=== PATIENT | male | born 1930 | race Caucasian/White ===

== ENCOUNTER 2016-09-12 07:09 | Emergency (ER) | payer MEDICARE, BC ==
[~2016-09-12] VITALS: Ht 172.7 cm; Wt 72.7 kg
[~2016-09-12 07:09] MED LIST: ASPIRIN E.C. 8181 MG PO; COUMADIN 1MG1 MG/TAB PO; LIPITOR 80MG80 MG PO; NORVASC 5MG5 MG/TAB PO; PLAVIX 75MG TAB75 MG PO; PLETAL50 MG PO; ZESTRIL 20MG TA20 MG PO
[2016-09-12 07:12] VITALS: BP 108/59; TEMP 96.9
[2016-09-12 08:29] VITALS: PULSE 71
== END 2016-09-12 08:31 | disposition home or self-care (01) ==
LOC: COL.ER 07:09
DX: S09.90XA Unspecified injury of head, initial encounter (principal); S01.01XA Laceration without foreign body of scalp, initial encounter; I10 Essential (primary) hypertension; Z79.01 Long term (current) use of anticoagulants; Z87.442 Personal history of urinary calculi; Z95.5 Presence of coronary angioplasty implant and graft; Z98.890 Other specified postprocedural states; W01.10XA Fall on same level from slipping, tripping and stumbling with subsequent striking against unspecified object, initial encounter; Y92.009 Unspecified place in unspecified non-institutional (private) residence as the place of occurrence of the external cause

== ENCOUNTER 2016-09-24 10:45 | Emergency (ER) | payer MEDICARE, BC ==
[2016-09-24 10:51] VITALS: BP 124/69; PULSE 18; TEMP 98.1
== END 2016-09-24 11:01 | disposition home or self-care (01) ==
LOC: COL.ER 10:45
DX: S01.01XD Laceration without foreign body of scalp, subsequent encounter (principal); Z79.01 Long term (current) use of anticoagulants; Z79.02 Long term (current) use of antithrombotics/antiplatelets; X58.XXXD Exposure to other specified factors, subsequent encounter

== ENCOUNTER 2016-11-23 12:36 | Inpatient (IN) | payer MEDICARE, BC ==
[~2016-11-23] VITALS: Ht 172.7 cm; Wt 70.1 kg
[2016-11-23] MEDS ORDERED: COUMADIN 3MG3 MG/TAB PO (12:58)
[2016-11-23] MEDS ORDERED: LOPRESSOR 550 MG/TAB PO (13:02)
[2016-11-23] MEDS ORDERED: ZYLOPRIM 100MG100 MG PO (13:03)
[2016-11-23] MEDS ORDERED: EPA FISH OIL1 SGL PO (13:04)
[2016-11-23 13:52] LABS: BASO # 0.1 (0.0-0.2); BASO % 1.5 % (0.0-2.0); EOS % 0.8 % (0-4.0); GRAN % 62.3 % (42.2-75.2); LYMPH # 0.9 (1.2-3.4); MEAN CELL VOLUME 91 fl (80.0-100.0); MEAN CORPUSCULAR HEMOGLOBIN 32 pg (27.0-31.0); MEAN CORPUSCULAR HGB CONC 36 g/dl (33.0-37.0); MEAN PLATELET VOLUME 9.2 fl (7.4-10.4); MONO # 0.8 (0.1-0.6); MONO % 15.8 % (1.7-9.3); PLATELET COUNT 194 K/mm3 (130-400); RED BLOOD COUNT 3.73 M/mm3 (4.20-5.60); WHITE BLOOD COUNT 4.7 K/mm3 (4.8-10.8)
[2016-11-23 13:53] LABS: HEMATOCRIT 33.8 % (42.0-52.0)
[2016-11-23 14:01] LABS: ADJUSTED CALCIUM 8.3 mg/dL (8.4-10.2); ALANINE AMINOTRANSFERASE 43 U/L (21-72); ALBUMIN 4.1 gm/dL (3.5-5.0); ALKALINE PHOSPHATASE 120 U/L (50-136); ANION GAP 25 mmol/L (7-16); BILIRUBIN,TOTAL 1.5 mg/dL (0.0-1.0); BLOOD UREA NITROGEN 20 mg/dL (9-20); CALCIUM 8.4 mg/dL (8.4-10.2); CHLORIDE 95 mmol/L (98-107); CREATININE, serum 1.52 mg/dL (0.66-1.25); GLUCOSE 59 mg/dL (74-106); POTASSIUM 4.2 mmol/L (3.4-5.0); SODIUM 133 mmol/L (137-145); TOTAL PROTEIN 6.8 gm/dL (6.4-8.2)
[2016-11-23 14:03] LABS: ACETAMINOPHEN < 10 ug/mL (10-30); CARBON DIOXIDE 13 mmol/L (22-30); SALICYLATE < 1.0 mg/dL
[2016-11-23 14:09] LABS: INR 1.8 (0.8-3.0); PROTHROMBIN TIME 20.6 SECONDS (9.7-12.8)
[2016-11-23 14:12] LABS: PARTIAL THROMBOPLASTIN TIME 35.7 SECONDS (26.0-37.0)
[2016-11-23 16:38] VITALS: BP 139/99; PULSE 115
[2016-11-23 16:45] LABS: MAGNESIUM 1.4 mg/dL (1.6-2.3)
[2016-11-23 18:16] VITALS: BP 159/68; PULSE 96; TEMP 98.9
[2016-11-23 19:34] LABS: ARTERIAL BLD GAS O2 SATURATION 93.5 % (92-100); ARTERIAL BLD GAS TCO2 CT 12.7; ARTERIAL BLOOD GAS BASE EXCESS -12.7 (-2-2); ARTERIAL BLOOD GAS PO2 85.1 mmHg (80-100); OXYHEMOGLOBIN 92.7 %
[2016-11-23 19:35] LABS: ALLEN TEST YES; ATS? YES
[2016-11-23 19:36] LABS: ALLENS TEST RESULT PASS
[2016-11-24] VITALS (8 sets, daily range): BP systolic 111–157; BP diastolic 48–81; PULSE 75–109; TEMP 97.3–98.2
[2016-11-24 02:16] LABS: PH 5 (5-8); SQUAMOUS EPITHELIAL None Seen /hpf; URINE APPEARANCE Clear; URINE BACTERIA None Seen /hpf; URINE BILIRUBIN Negative (NEGATIVE); URINE BLOOD 1+ (NEGATIVE); URINE COLOR Yellow; URINE GLUCOSE Negative (NEGATIVE); URINE KETONE 1+ (NEGATIVE); URINE RBC 0-2 /hpf; URINE UROBILINOGEN Negative (NEGATIVE); URINE WBC 0-2 /hpf
[2016-11-24 07:52] LABS: BASO # 0.1 (0.0-0.2); BASO % 0.9 % (0.0-2.0); EOS % 0.2 % (0-4.0); GRAN # 3.7 (1.4-6.5); LYMPH # 0.7 (1.2-3.4); LYMPH % 13.4 % (20.0-51.0); MEAN CELL VOLUME 94 fl (80.0-100.0); MEAN CORPUSCULAR HEMOGLOBIN 32 pg (27.0-31.0); MEAN CORPUSCULAR HGB CONC 34 g/dl (33.0-37.0); MEAN PLATELET VOLUME 10.4 fl (7.4-10.4); MONO # 0.9 (0.1-0.6); MONO % 16.6 % (1.7-9.3); PLATELET COUNT 156 K/mm3 (130-400); RED BLOOD COUNT 3.78 M/mm3 (4.20-5.60); REDCELL DISTRIBUTION WIDTH-CV 13.2 % (11.5-14.5); WHITE BLOOD COUNT 5.4 K/mm3 (4.8-10.8)
[2016-11-24 07:53] LABS: HEMATOCRIT 35.6 % (42.0-52.0)
[2016-11-24 07:57] LABS: CALCIUM 8.5 mg/dL (8.4-10.2); CREATININE, serum 1.36 mg/dL (0.66-1.25)
[2016-11-25] VITALS (10 sets, daily range): BP systolic 113–173; BP diastolic 60–100; PULSE 76–109; TEMP 97.2–98.5
[2016-11-25 06:33] LABS: BASO % 0.6 % (0.0-2.0); EOS % 0.4 % (0-4.0); GRAN # 3.9 (1.4-6.5); GRAN % 75.9 % (42.2-75.2); LYMPH # 0.4 (1.2-3.4); LYMPH % 7.8 % (20.0-51.0); MEAN CELL VOLUME 94 fl (80.0-100.0); MEAN CORPUSCULAR HGB CONC 34 g/dl (33.0-37.0); MEAN PLATELET VOLUME 10.3 fl (7.4-10.4); MONO # 0.8 (0.1-0.6); MONO % 14.7 % (1.7-9.3); PLATELET COUNT 119 K/mm3 (130-400); RED BLOOD COUNT 2.92 M/mm3 (4.20-5.60); REDCELL DISTRIBUTION WIDTH-CV 13.2 % (11.5-14.5); WHITE BLOOD COUNT 5.1 K/mm3 (4.8-10.8)
[2016-11-25 06:46] LABS: HEMATOCRIT 27.3 % (42.0-52.0); HEMOGLOBIN 9.3 g/dl (13.5-18.0); MEAN CORPUSCULAR HEMOGLOBIN 32 pg (27.0-31.0)
[2016-11-25 06:53] LABS: CALCIUM 7.4 mg/dL (8.4-10.2); CREATININE, serum 1.16 mg/dL (0.66-1.25); MAGNESIUM 1.8 mg/dL (1.6-2.3)
[2016-11-26] VITALS (10 sets, daily range): BP systolic 131–165; BP diastolic 68–109; PULSE 59–145; TEMP 97.5–99.2
[2016-11-26 07:39] LABS: BASO % 0.5 % (0.0-2.0); EOS % 0.3 % (0-4.0); GRAN # 4.4 (1.4-6.5); GRAN % 77.3 % (42.2-75.2); HEMATOCRIT 29.3 % (42.0-52.0); HEMOGLOBIN 10.1 g/dl (13.5-18.0); LYMPH # 0.4 (1.2-3.4); LYMPH % 7.5 % (20.0-51.0); MEAN CELL VOLUME 93 fl (80.0-100.0); MEAN CORPUSCULAR HEMOGLOBIN 32 pg (27.0-31.0); MEAN CORPUSCULAR HGB CONC 35 g/dl (33.0-37.0); MEAN PLATELET VOLUME 10.7 fl (7.4-10.4); MONO # 0.8 (0.1-0.6); MONO % 14.1 % (1.7-9.3); PLATELET COUNT 107 K/mm3 (130-400); RED BLOOD COUNT 3.15 M/mm3 (4.20-5.60); REDCELL DISTRIBUTION WIDTH-CV 13.1 % (11.5-14.5); WHITE BLOOD COUNT 5.7 K/mm3 (4.8-10.8)
[2016-11-26 07:41] LABS: CALCIUM 7.5 mg/dL (8.4-10.2); CREATININE, serum 1.05 mg/dL (0.66-1.25)
[2016-11-26 11:49] LABS: ARTERIAL BLD GAS O2 SATURATION 87.5 % (92-100); ARTERIAL BLD GAS TCO2 CT 21.7; ARTERIAL BLOOD GAS BASE EXCESS -6.7 (-2-2); ARTERIAL BLOOD GAS HCO3 20.3 meq/L (22-26); ARTERIAL BLOOD GAS PHT 7.26 C (7.35-7.45); ARTERIAL BLOOD GAS PO2 64.6 mmHg (80-100); ARTERIAL BLOOD GAS PO2T 64.6 (80-100); ARTERIAL BLOOD GAS pH 7.26 (7.35-7.45); OXYHEMOGLOBIN 86.6 %
[2016-11-26 11:50] LABS: ATS? YES
== END 2016-11-27 00:30 | disposition expired | DRG 896 ==
LOC: COL.ER 12:36 → MEDICAL 15:10
PROVIDERS: Nurse Practitioner; Physician Assistant
DX: F10.231 Alcohol dependence with withdrawal delirium (principal); J96.01 Acute respiratory failure with hypoxia; Z51.5 Encounter for palliative care; Z66 Do not resuscitate; J69.0 Pneumonitis due to inhalation of food and vomit; E87.1 Hypo-osmolality and hyponatremia; E87.2 Acidosis; M48.56XA Collapsed vertebra, not elsewhere classified, lumbar region, initial encounter for fracture; F10.251 Alcohol dependence with alcohol-induced psychotic disorder with hallucinations; Y90.6 Blood alcohol level of 120-199 mg/100 ml; I48.91 Unspecified atrial fibrillation; I10 Essential (primary) hypertension; I73.9 Peripheral vascular disease, unspecified; I25.10 Atherosclerotic heart disease of native coronary artery without angina pectoris; E83.42 Hypomagnesemia; D69.6 Thrombocytopenia, unspecified
CPT/HCPCS: 99223-AI; 99231-AI; 99232-AI; 99233-AI; C9113; J0360; J1650; J1940; J2060; J2270; J3475; J7030